=== PATIENT | male | born 1950 | race Caucasian/White ===

== ENCOUNTER → 2018-10-05 10:42 | Day surgery (SDC) | payer BC ==
[~2018-10-05 10:42] MED LIST: Buffered Lidocaine 1% SYRIN* 1 ML/SYRINGE INTRADERM ONE; Bupivacaine 0.25% SDV PF* 10 ML VIAL INJ ONE; Bupivacaine 0.5% W/EPI SDV* 30 ML VIAL ONE; Dexamethasone IV* 4 MG/ML 1 ML (4 MG) ONE; DiMENhydriNATE IV* 50 MG/ML VIAL IV PUSH PRN; EPINEPHRINE 1 MG/ML 1 ML VIAL ONE; HYDROmorphone INJ1* 1 MG/ML SYRINGE IV PRN; Ketorolac INJ* 30 MG/ML 1 ML VIAL ONE; Lactated Ringers 1000 ML Bag* 1,000 ML IV SCH; Midazolam* 1 MG/ML 5 ML VIAL (5 MG) ONE; Naloxone* 0.4 MG/ML 1 ML VIAL IV PRN; Ondansetron INJ* 2 MG/ML VIAL IV PRN; Ondansetron INJ* 2 MG/ML VIAL ONE; Propofol* 10 MG/ML 20 ML BTL ONE; ceFAZolin 2 GM PREMIX in ORs 2 GM/50 ML BAG IVPB ONE; fentaNYL* 50 MCG/ML 2 ML VIAL (100 MCG VIAL) IV PRN; fentaNYL* 50 MCG/ML 2 ML VIAL (100 MCG VIAL) ONE; oxyCODONE/Acetamin 5/325 MG* TAB PO PRN
[2018-10-05 18:59] VITALS: BP 140/90
--- NOTE | 2018-10-08 01:20 | OP ---
DATE OF OPERATION: 10/05/18 - [facility] DATE OF : 54 SURGEON: Rustam Pinon MD CHUCK BONER: SHERRI Bob. A physician assistant infant toddler teacher was required for the length of the procedure for assistance with positioning, instrumentation, and closure. ANESTHESIOLOGIST: Antoine Vance MD ANESTHESIA: General anesthesia, regional interscalene block anesthesia, local anesthesia with 10 cc of 0.25% Marcaine with epinephrine in the subcutaneous tissue about the open incision site. PRE-OP DIAGNOSES: 1. Left shoulder rotator cuff tendonitis, partial thickness tear. 2. Left shoulder subacromial bursitis and impingement. 3. Left shoulder AC joint osteoarthritis. 4. Left shoulder possible biceps tendinosis or superior labral tear. POST-OP DIAGNOSES: 1. Left shoulder rotator cuff tendonitis. 2. Left shoulder supraspinatus partial thickness under-sided tear, intrasubstance tearing. 3. Left shoulder subacromial bursitis and impingement. 4. Left shoulder AC joint osteoarthritis. 5. Left shoulder superior labrum tear. OPERATIVE PROCEDURE: 1. Left shoulder arthroscopic rotator cuff tendon repair using biologic patch. 2. Left shoulder arthroscopic subacromial decompression. 3. Left shoulder arthroscopic distal clavicle resection. 4. Left shoulder arthroscopic release of biceps and debridement of superior labrum. 5. Left shoulder open proximal biceps tenodesis, subpectoral. ANTIBIOTICS: Ancef 2 g IV. IV FLUIDS: See anesthesia note. MEZT-FL-LBTB TIME: 94 minutes. ARTHROSCOPY FLUID UTILIZED: 10 bags each with 3 L for a total of 30 L. SPECIMEN: None. IMPLANTS: Vel[employer]quez [employer]hew Regeneten biologic patch x1. Medium size. Arthrex proximal biceps button, unicortical. COMPLICATIONS: None. ESTIMATED BLOOD LOSS: Minimal. 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 Much pain and weakness with reaching and daytime and nighttime pain. Responded insufficiently to nonoperative management. MRI showed inflammation of the supraspinatus tendon and some intrasubstance tearing. Possibly also some under surface tearing. The patient was scheduled for surgery. Discussed risks and potential complications of surgery. Discussed postoperative timeline for recovery. DESCRIPTION OF PROCEDURE: In preoperative holding, the patient signed a written consent. Operative extremity was marked in preoperative holding. Dr. Vance did a regional interscalene block in preoperative holding. The patient was taken back to the operating room and placed supine on operating room table, sedated and intubated. Transferred in the lateral decubitus position with the left shoulder up. Axillary roll placed. Carroll bag hardened. All bony prominences padded. Longitudinal traction with 15 pounds in the appropriate amount of forward flexion and abduction of the shoulder. Left shoulder prepped and draped. Surgical time-out performed. Spinal needle entered into the glenohumeral joint from posterior. 30 cc of normal saline infused. Established posterior glenohumeral joint portal. Commenced diagnostic arthroscopy. No significant articular cartilage wear. No loose body. No subscapularis tear. The patient did have some fraying of the anterior half or anterior two thirds of the supraspinatus tendon, some undersurface tearing. The patient clearly had tearing of the superior and posterior-superior labrum. Some minimal tendinosis along the biceps long head tendon. I established an anterior glenohumeral joint portal under direct visualization. I evaluated the supraspinatus tendon. I entered an arthroscopic shaver and smoothed out the undersurface tearing. That undersurface tearing was not more than 1 to 2 mm in width. There was no exposed footprint more than 1 mm. However, the tendon that remained did not look of robust, good quality. Therefore, I thought it was likely that there was some intrasubstance tearing that had been seen on preoperative MRI or just a poor quality tendon. I next entered an arthroscopic scissors and cut the long head of the biceps tendon just off its origin. I smoothed out some superior and posterior- superior labrum. It did not prolapse into the joint or anything like that. Moved instruments from the glenohumeral joint and moved to the subacromial space. In the subacromial space, I made a lateral and then a posterior lateral portal. The patient had significant synovitis or bursitis in the subacromial space. I debrided this with an arthroscopic shaver. There was no visible bursal-sided rotator cuff tendon tear visible or palpable with probing. I removed the anterior curve of the acromion using an arthroscopic marcelo entered from lateral. I then addressed the AC joint. I debrided with electrocautery the synovitic tissue about that joint. I then removed 8 mm at the distal end of the clavicle with an arthroscopic marcelo. I next returned to the rotator cuff tendon, specifically the supraspinatus. I had spoken with the patient preoperatively about the possible use of a biologic patch or rotator cuff repair. I thought this was indicated based on the undersurface tearing, the intrasubstance poor quality tissue and likely tearing. I made an additional superior lateral portal that I would place a cannula in and I would use all my yoselyn. I widened the lateral portal and used it to enter the graft. I used the accounts receivable processor to place the graft, medium size, over the bursal side of the supraspinatus tendon. I then placed yoselyn through the superior lateral portal. I placed approximately 7 bio-absorbable yoselyn keeping the patch in place overlying the supraspinatus tendon. I then placed 2 bone anchors in the lateral most end of the patch into bone. Patch appeared well situated, secure. I next removed all instruments and fluid from the subacromial space. Closed skin incisions with tigllt-up-sayrd and 12 stitches using nylon 3-0 suture. The carroll bag was slightly softened and the patient was turned into a nearly supine position. I made the standard longitudinal proximal upper arm anteromedial skin incision. I dissected down to the bicipital groove and removed the long head of the biceps tendon. I placed my Beath pin through the anterior cortex of the bicipital groove and proximal humerus. I placed 4 stitches with FiberLoop suture and loaded the biceps button. I placed it, flipped it, and tied a knot. Used a free needle to place one additional tenodesis stitch. I removed excess suture and tendon. Irrigation. Closure of the subcutaneous tissue with buried simple stitches using Vicryl 3-0 suture. Closure of the subcuticular layer with a running stitch using Monocryl 4-0 suture. Mastisol and Steri-Strips. 4x4 and Tegaderm. I returned to the arthroscopic skin incisions and placed Xeroform, 4x4's, ABD's , and foam tape. The patient was placed in a sling and abduction pillow. The patient was awakened, extubated, and taken to the PACU. DISPOSITION: The patient was given wound care instructions. The patient was sent home with Percocet as needed for pain control and a 3-day prescription of Keflex. He will follow up with me in 10 to 14 days. He will start physical therapy. [id number]/[facility] #: [id number] OSITO
== END | disposition home or self-care (01) ==
LOC: OR 10:42
PROVIDERS: ATTEND Orthopaedic Surgery
DX: M75.112 Incomplete rotator cuff tear or rupture of left shoulder, not specified as traumatic (principal); M75.52 Bursitis of left shoulder; M75.82 Other shoulder lesions, left shoulder; M75.42 Impingement syndrome of left shoulder; M19.012 Primary osteoarthritis, left shoulder; G89.18 Other acute postprocedural pain; K21.9 Gastro-esophageal reflux disease without esophagitis
CPT/HCPCS: C1713; C1776; J0690; J1100; J1885; J2250; J2405; J2704; J3010; J3490

== ENCOUNTER 2018-11-10 09:23 | Emergency (ER) | payer BC ==
--- OUTSIDE RECORDS SUMMARY | 2018-11-10 09:41 | XMS REPORT | Continuity of Care Document ---
:1950 External Reference #:[id number] Author Name Haritha Edwards Care Team Providers Name Role Phone Bowen Smith MD Primary Care Physician Unavailable Payers Type Date Identification Numbers Payment Provider Subscriber Effective: Policy Number: [facility] [employer] 2017 [id number] Group Number: [id number] [address] [address] PayID: [id number] ALLA Olguin [address] Advance Directives Description No Information Available Problems Date Description Provider Status Onset: 09/08/2017 Cervical spondylosis without Ryan Lorenzo M.D. Active myelopathy Onset: 06/27/2016 Right temporomandibular joint Gonzalo Perea M.D. Active disorder, unspecified Onset: 06/27/2016 Impacted sadia Perea M.D. 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 Tobacco Use Start: Unknown End: Former Cigarette Smoker Quit years ago Unknown Tobacco Use Start: Unknown Never Smoked Cigars Tobacco Use Start: Unknown Never Smoked A Pipe Smoking Status Reviewed: 10/16/18 Never Smoked A Pipe Smokeless Tobacco Never Used Smokeless Tobacco ETOH Use Rarely consumes alcohol Tobacco Use Start: Unknown Patient has never smoked Recreational Drug Use Denies Drug Use Exercise Type/Frequency Does not exercise Allergies, Adverse Reactions, Alerts Date Description Reaction Status Severity Comments 06/27/2016 Ambien Active Spaced out 12/15/2014 NKDA Inactive Medications Medication Date Status Form Strength Qnty SIG Indications Ordering Provider Percocet 10/05/ Active Tablets 5-325mg 30tabs 1 - 2 2018 tabs by F mouth Kathrin, every 4 - MD 6 hours as needed for pain. Aspir-Low / Active Unknown 0000 Keflex 10/05/ Hx Capsules 500mg 15caps take 1 2018 - tab by F 10/15/ mouth 3 Kathrin, 2019 times a MD day x 5 days until finished. No Active 07/03/ Hx Unknown Medications 2017 - 2017 No Active 06/27/ Hx Unknown Medications 2015 - 2015 Nexium / Hx Capsules 40mg 1 by Unknown 0000 - DR mouth 06/26/ every day 2015 Cyclobenzaprine / Hx Tablets 10mg one by Unknown HCL 0000 - mouth 06/26/ three 2016 times a day as needed spasm Acetaminophen / Hx Tablets 500mg 2 tablets Unknown 0000 - by mouth 07/02/ every 6 2017 hours as needed for pain/feve r Osteo Bi-Flex / Hx Tablets 2 po Unknown Advanced Triple 0000 - daily Strength 2017 Valtrex / Hx Tablets 1gm 1 by Unknown 0000 mouth two times a day Keflex / Hx Capsules 500mg 1 tab by Unknown 0000 mouth two times a day Tobrex / Hx Ointment 0.3% as Unknown 0000 directed Medications Administered in Office Medication Date Status Form Strength Qnty SIG Indications Ordering Provider Depomedrol Administered Injection Rustam Armendariz 40MG 018 MD Kathrin Immunizations Description No Information Available Vital Signs Date Vital Result Comment 10/16/2018 8:54am Height 69 inches 5'9" Weight 235.00 lb Heart Rate 78 /min BP Systolic 118 mmHg BP Diastolic 70 mmHg Respiratory Rate 12 /min Body Temperature 97.9 F Pain Level 0 BMI (Body Mass Index) 34.7 kg/m2 09/26/2018 1:23pm Height 69 inches 5'9" Weight 211.00 lb Heart Rate 101 /min BP Systolic 132 mmHg BP Diastolic 78 mmHg Respiratory Rate 18 /min Body Temperature 97.4 F Pain Level 5 BMI (Body Mass Index) 31.2 kg/m2 09/04/2018 9:33am Height 69 inches 5'9" Weight 241.00 lb BP Systolic 117 mmHg BP Diastolic 68 mmHg Respiratory Rate 16 /min Pain Level 2 BMI (Body Mass Index) 35.6 kg/m2 08/16/2018 8:15am Height 69 inches 5'9" Heart Rate 76 /min BP Systolic 122 mmHg BP Diastolic 76 mmHg Body Temperature 97.3 F Pain Level 0 07/03/2018 8:28am Height 69 inches 5'9" Weight 243.00 lb Heart Rate 80 /min BP Systolic 124 mmHg BP Diastolic 76 mmHg Pain Level 6 BMI (Body Mass Index) 35.9 kg/m2 09/08/2017 8:42am Height 70 inches 5'10" Weight 234.00 lb Heart Rate 81 /min BP Systolic Sitting 124 mmHg BP Diastolic Sitting 74 mmHg Pain Level 2 BMI (Body Mass Index) 33.6 kg/m2 06/29/2017 9:55am Height 70 inches 5'10" Weight 234.00 lb Heart Rate 60 /min BP Systolic 160 mmHg BP Diastolic 100 mmHg Respiratory Rate 16 /min Body Temperature 97.6 F BMI (Body Mass Index) 33.6 kg/m2 06/27/2016 3:54pm Height 70 inches 5'10" Weight 224.00 lb Heart Rate 84 /min BP Systolic Sitting 120 mmHg BP Diastolic Sitting 86 mmHg BMI (Body Mass Index) 32.1 kg/m2 09/01/2015 10:55am Height 70 inches 5'10" Weight 238.00 lb Pain Level 2 BMI (Body Mass Index) 34.1 kg/m2 08/11/2015 9:24am Height 70 inches 5'10" Weight 238.00 lb BMI (Body Mass Index) 34.1 kg/m2 01/07/2015 11:32am Height 70 inches 5'10" Weight 238.00 lb Body Temperature 97.0 F Pain Level 1 BMI (Body Mass Index) 34.1 kg/m2 12/15/2014 8:15am Height 70 inches 5'10" Weight 238.00 lb Heart Rate 80 /min BP Systolic 127 mmHg BP Diastolic 86 mmHg Pain Level 7 BMI (Body Mass Index) 34.1 kg/m2 Results Test Date Facility Test Result H/L Range Note Laboratory test 07/05/2017 [facility] Surgical SEE RESULT [address] [place] [address] [phone] 1 SEE RESULT BELOW Name: PANTERA PETERS : [address]: Bang Cantu MD Acct: [id number] Unit: [id number] AGE: 67 Location: OR Re07/05/17 SEX: M Status: DEP SD SPEC: [id number] EMMA: 07/05/[address]: Bang Cantu MD REQ: [id number] RECD: 07/05/17201 STATUS: SOUT _ ORDERED: LEVEL 3 FINAL DIAGNOSIS Left flank, excision: -- Lipoma. PRE-OPERATIVE DIAGNOSIS Left flank lipoma, benign lipomatous neoplasm of skin GROSS DESCRIPTION The specimen is received in formalin labeled, Left Flank Lipoma, and consists of a 5.4 x 4.1 x 2.0 cm yellow-pink ovoid well encapsulated adipose tissue fragment. The cut surface is glistening yellow and lobulated with scant focal hemorrhage. The specimen is inked, serially sectioned and a medical representative section is submitted in one cassette. Signed (signature on file) Sweta Jeong MD 1019 END OF REPORT * ML=Testing performed at Main Lab DEPARTMENT OF PATHOLOGY, [address] [place] [address] Eric Romero M.D. Director [facility] # [id number] Procedures Date Code Description Status 10/05/2018 65286 Arthroscopy Shoulder,W/Rotator Cuff Repair Completed 10/05/2018 49162 Arthroscopy Shoulder,W/Rotator Cuff Repair Completed 10/05/2018 68257 Arthroscopy,Shoulder Decompression Of Subacromial Space Completed W/Acromio 10/05/2018 57615 Arthroscopy,Shoulder Decompression Of Subacromial Space Completed W/Acromio 10/05/2018 27730 Arthroscopy,Shoulder,Distal Claviculectomy Incl Dist Completed Articular SR 10/05/2018 26064 Arthroscopy,Shoulder,Distal Claviculectomy Incl Dist Completed Articular SR 10/05/2018 57539 Tenodesis Biceps Long Tendon Completed 10/05/2018 83120 Tenodesis Biceps Long Tendon Completed 07/03/2018 67972 Inject/Drain Joint/Bursa Major W/O US Completed 07/05/2017 81458 Excision Tumor Back/Flank, Soft Tissue, Subcutaneous, > 3 Completed CM 07/05/2017 50061 Excision Tumor Back/Flank, Soft Tissue, Subcutaneous, > 3 Completed CM 06/27/2016 33800 Remove Impacted Cerumen Completed 03/02/2016 89818 EKG, Interpretation Only Completed 10/27/2010 76532 ECHO Stress Test Incl Perf Contiuous ekg Monitoring W/Phys Completed Superv 05/24/2006 86221 Color Doppler Completed 05/24/2006 10729 Color Doppler Completed 05/24/2006 19013 Pulse Doppler & Continuous Wave Completed 05/24/2006 32796 Echocardiogram Completed 05/24/2006 63985 Echocardiogram Completed Encounters Type Date Location Provider Dx Diagnosis Office Visit 09/04/2018 Orthopedic Rustam Armendariz S46.012D Strain of 9:15a [facility] Maxime Pinon MD musc/tend the rotator cuff of left shoulder, subs M75.52 Bursitis of left shoulder M75.82 Other shoulder lesions, left shoulder M75.42 Impingement syndrome of left shoulder M19.012 Primary osteoarthritis, left shoulder Office Visit 08/16/2018 8:00a Orthopedic Rustam Armendariz S46.012D Strain of Services Of MD Kathrin musc/tend the C.M.A. rotator cuff of left shoulder, subs M75.52 Bursitis of left shoulder M75.82 Other shoulder lesions, left shoulder Office Visit 07/03/2018 8:15a Orthopedic Rustam F M75.52 Bursitis of Services Of MD Kathrin left shoulder C.M.A. S46.012A Strain of musc/tend the rotator cuff of left shoulder, init Office Visit 09/08/2017 Neurosurgery Ryan M47.812 Spondylosis w/o 9:30a Services Of [place] Lorenzo M.D. myelopathy or radiculopathy, cervical region Office Visit 06/29/2017 Surgical Bang Stark D17.1 Benign lipomatous 10:00a [facility] Cantu MD, neoplasm of skin, FACS subcu of trunk Office Visit 06/27/2016 ENT [facility] Gonzalo H61.23 Impacted cerumen, 3:15p C.M.A. AT [facility], bilateral Boni Pizarro M26.601 Right temporomandibular joint disorder, unspecified Office Visit 09/01/2015 Orthopedic Casper Riley, M17.11 Unilateral primary 11:00a Services Of osteoarthritis, right C.M.A. knee Office Visit 08/11/2015 Orthopedic Danielle M17.11 Unilateral primary 9:20a Services Of TRINY Guerra osteoarthritis, right C.M.A. knee S83.221D Prph tear of medial meniscus, current injury, r knee, subs Office Visit 01/07/2015 11:15a Orthopedic Sanjiv Ponce, 836.0 Dislocation Knee [facility] Tear Of Medial C.M.A. Cartilage Or Meniscus Curren 715.36 Osteoarthrosis Localzd Not Spec Prime Or 2Ndy Lower Leg Office Visit 12/15/2014 8:00a Orthopedic Sanjiv Ponce, 717.9 Internal [facility] Derangement Knee C.M.A. Unspec 715.96 Osteoarthrosis Unspec Genlzd Or Localized Lower Leg 727.51 Cyst Synovial Popliteal Space Office Visit 03/07/2012 9:00a Orthopedic Nino Will, 717.9 Internal [facility] Derangement Knee C.M.A. Unspec Office Visit 10/27/2010 9:30a [facility] S. 424.3 Pulmonary Valve Moira Perez Disorder 786.05 Shortness Of Breath Plan of Treatment Future Appointment(s):11/13/2018 8:45 am - Rustam Pinon MD at [facility]..10/16/2018 - Rustam Pinon, MDM75.112 Incomplete rotator cuff tear or rupture of left shoulder, noFollow up:Follow up : 4 dngknM05.82 Other shoulder lesions, left wvewsbgwZ09.52 Bursitis of left zomujbwpF07.012 Primary osteoarthritis, left shoulder
[2018-11-10] MEDS ORDERED: Albuterol/Ipratropium NEB.SOL* Albuterol 2.5 MG/Ipratropium 0.5 MG 3 ML INH ONE (10:26)
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
[2018-11-10 11:00] LABS: ABS Basophils 0.1 10^3/ul (0-0.2); ABS Eosinophils 0.2 10^3/ul (0-0.6); ABS Lymphocytes 1.4 10^3/ul (1.0-4.8); ABS Monocytes 0.8 10^3/ul (0-0.8); ABS Neutrophils 3.5 10^3/ul (1.5-7.7); ABS Nucleated RBC 0 10^3/ul; Hematocrit 48 % (42-52); Hemoglobin 15.8 g/dl (14.0-18.0); Lymphocyte % 23.7 %; Mean Corpuscular HGB Conc 33 g/dl (31-36); Mean Corpuscular Hemoglobin 29 pg (27-31); Mean Corpuscular Volume 88 fL (80-94); Mean Platelet Volume 8.4 fL (7.4-10.4); Nucleated Red Blood Cells % 0.1; Platelet Count 213 10^3/ul (150-450); Red Blood Count 5.41 10^6/ul (4.00-5.40); Red Cell Distribution Width 14 % (10.5-15)
[2018-11-10 11:20] LABS: Albumin 4.1 g/dL (3.2-5.2); Albumin/Globulin Ratio 1.3 (1-3); BUN/Creatinine Ratio 24.4 (8-20); Calcium 9.5 mg/dL (8.6-10.3); EGFR African American 107.7 (>60); Globulin 3.2 g/dL (2-4); Potassium 4.2 mmol/L (3.5-5.0); Total Bilirubin 0.6 mg/dL (0.2-1.0); Total Protein 7.3 g/dL (6.4-8.9)
[2018-11-10 11:38] LABS: INR 1.05 (0.77-1.02)
[2018-11-10] MEDS ORDERED: NS 0.9% 1000 ML** 1,000 ML IV ONE (11:50)
[2018-11-10] MEDS ORDERED: Iohexol 350* (CONTRAST) 500 ML MDV IV ONE (12:06)
[2018-11-10] MEDS ORDERED: predniSONE TAB* 20 MG PO ONE (13:39)
[2018-11-10] MEDS ORDERED: Azithromycin TAB* 250 MG PO ONE (13:39)
[2018-11-10 14:21] VITALS: BP 133/84
== END 2018-11-10 14:21 | disposition home or self-care (01) ==
LOC: ED 09:23
DX: J40 Bronchitis, not specified as acute or chronic (principal); Z88.8 Allergy status to other drugs, medicaments and biological substances
CPT/HCPCS: 36415; 71046; 71275; 80053; 83880; 84484; 85025; 85379; 85610; 85730; 93005; 96360; 96361; 99283; A9270-GY; J7512; Q9967